=== PATIENT | female | born 1985 | race Caucasian/White ===

== ENCOUNTER 2016-04-13 12:50 | Inpatient (IN) | payer MEDICAID ==
[2016-04-13] MEDS ORDERED: DEXTROSE 5%-LACTATED RINGERS 1,000 ML IV PRN ×2 (15:03→17:03)
[2016-04-13] MEDS ORDERED: OXYTOCIN/DEXTROSE 5%-WATER 30 UNITS/500 ML BAG IV ONE (17:03)
[2016-04-13] MEDS ORDERED: LIDOCAINE HCL 50 ML VIAL PERI PRN (17:03)
[2016-04-13] MEDS ORDERED: RINGERS SOLUTION,LACTATED 1,000 ML IV ONE (17:03)
[2016-04-13 17:20] LABS: Hematocrit 32.9 % (37.0-47.0); Hemoglobin 10.4 gm/dL (12.5-16.0); Mean Cell Volume 91.6 fl (78-100); Mean Corpuscular Hgb Conc 31.6 g/dl (32-36); Mean Platelet Volume 10.7 fl (6.0-9.5); Neutrophil # 7.6 K/mm3 (1.3-6.0); Neutrophil % 77.6 % (42-75.0); Platelet Count 153 K/mm3 (150-450); Red Blood Count 3.59 M/mm3 (4.2-5.4); Red Cell Distribution Width 21.1 % (11.5-14.0); White Blood Count 9.8 K/mm3 (4.0-10.5)
[2016-04-13 17:35] LABS: Albumin * 2.4 gm/dl (3.4-5.0); Anion Gap 14.3 mmol/L (6.8-13.8); BUN/Creatinine Ratio 8.9 (9.0-21.6); Bilirubin, Total 0.3 mg/dL (0.0-1.1); Ca. Corrected For Albumin 9.3 mg/dL (8.4-10.2); Calcium * 8.3 mg/dL (7.9-10.9); Carbon Dioxide 21.2 mmol/L (24-32.6); Potassium 3.5 mmol/L (3.4-4.6); Total Protein 6.5 gm/dL (6.2-8.2)
[2016-04-13 17:44] LABS: Random Urine Total Protein 19.1 mg/dL (0-12)
[2016-04-13] MEDS ORDERED: BUPIVACAINE HCL/0.9 % NACL/PF 250 ML EP PRN (18:46)
--- NOTE | 2016-04-13 18:49 | OR ---
Anesthesia Pre Procedure Eval Date of Service: 04/13/16 Pre Procedure Evaluation: Last Vital Signs Temp 36.4 C L 05/09/14 07:24 Pulse Resp BP 135/74 05/09/14 07:24 Pulse Ox Anesthesia Pre Procedure Evaluation Heart Rate:112 Blood Pressure:151/84 Termperature:37.1 Respiratory Rate:18 SaO2:97 DATE: 04/13/2016 TIME: 1845 INDICATIONS: Active labor, labor pain PAST MEDICAL HISTORY:. multipara patient in active labor requesting labor analgesia EXAM: Heart regular; lungs clear ASSESSMENT OF MEDICAL STATUS: Appropriate candidate for labor analgesia PLANNED PROCEDURE: Combination spinal epidural for labor analgesia Home Medications: HOME MEDICATIONS Vit#96/Ferrous Fum/FA [ S] 1 tab PO DAILY 05/06/14 [Last Taken 04/13/16] Ferrous Sulfate 325 mg PO DAILY #60 tablet 05/08/14 [Last Taken 04/13/16] Aspirin [Aspirin EC] 81 mg PO DAILY 04/13/16 [Last Taken 04/13/16]
[2016-04-13] MEDS ORDERED: fentaNYL CITRATE/PF 50 MCG/ML AMPUL IT SCH (19:00)
--- NOTE | 2016-04-13 19:22 | OR ---
Anesthesia Procedure Note - Anesthesia Procedure Note Date of Service: 04/13/16 Narrative: Vital Signs - Last Taken Temp 36.4 C L 05/09/14 07:24 Pulse Resp BP 135/74 05/09/14 07:24 Pulse Ox 04/13/16 19:19 ANESTHESIA PROCEDURE NOTE Date of Procedure: 04/13/2016 Time of procedure: 10/01/1943. Performed by: PEDRO Lew CRNA, MSN Physical Therapy Instructor: Gilma Gaines Preprocedure diagnosis: Active labor, labor pain. Post procedure diagnosis: Same. Procedure: Labor Epidural Placement L3 4. Indications: Labor pain. Findings: See below. Details of the procedure: The patient was placed on the side of the bed in sitting position. The patient was prepped with DuraPrep and draped in a sterile fashion. Lidocaine 1% was infiltrated to the skin and subcutaneous tissues at the level of the L3 4 interspace. The epidural space was identified using a 18-gauge Tuohy needle with [id number] technique. Fentanyl 20 g was given intrathecally the intrathecal needle was then removed and the epidural catheter was threaded approximately 4 cm, the epidural needle was then removed, and after careful aspiration 3 mL of 1.5% lidocaine with 1-200,000 epinephrine was injected without change in maternal heart rate or sensorium. The catheter was then taped in place. EBL: Minimal. Fluids: N/A. Specimen: N/A. Post procedure condition: The patient tolerated the procedure well with good relief. No complications were noted. Thank you for this consultation. Nahum Humphries CRNA, CAR MECHANIC, MSN
--- NOTE | 2016-04-14 00:59 | PN ---
Progess Note - Interim Narrative: 04/14/16 00:55 Patient comfortable with epidural Blood pressures 130s-160/70-90's. Pitocin at 6 mu/min. FHT:150 baseline, reassuring Contractions q 2 min Cervix: Complete/+1 Impression: Intrauterine at 38-4/7 weeks in labor, gestational hypertension stable Plan: Anticipate normal spontaneous vaginal delivery within the next 1-2 hours
[2016-04-14] MEDS ORDERED: HYDROCORTISONE 30 APPL TUBE TP PRN (01:52)
[2016-04-14] MEDS ORDERED: BISACODYL 10 MG SUPP.RECT RC PRN (01:52)
[2016-04-14] MEDS ORDERED: RINGERS SOLUTION,LACTATED 1,000 ML IV PRN (01:52)
[2016-04-14] MEDS ORDERED: OXYTOCIN/DEXTROSE 5%-WATER 30 UNITS/500 ML BAG IV ONE (01:52)
[2016-04-14] MEDS ORDERED: oxyCODONE HCL/ACETAMINOPHEN 1 TAB TABLET PO PRN (01:52)
[2016-04-14] MEDS ORDERED: BENZOCAINE/MENTHOL 81 SPRAY CAN TP PRN (01:52)
[2016-04-14] MEDS ORDERED: SENNOSIDES 8.6 MG TABLET PO PRN (01:52)
[2016-04-14] MEDS ORDERED: GLYCERIN/WITCH HAZEL LEAF 40 APPL BOX TP PRN (01:52)
--- NOTE | 2016-04-14 01:52 | OR ---
Operative Report - Dictated Report Narrative: Spontaneous vaginal delivery of viable female at 0127 on 04/14/2016 with Apgars 7 and 8, weighing 4631 g in GUERO position. Terminal meconium noted. Cord clamping delayed approximately 1 minute. Placenta delivered complete, intact, with three vessel cord Estimated blood loss: less than 50 ml Lacerations: None History for MU Definition: * The number of deliveries resulting in a live the patient experienced prior to current hospitalization * The previous delivery of live twins or any live multiple gestation is considered one live event. *If primagravida or nulliparous is documented select zero for the number of previous live births. Live Events: 2
[2016-04-14] MEDS: oxyCODONE HCL/ACETAMINOPHEN 1 TAB TABLET PO PRN ×4 (02:55→18:53)
[2016-04-14] MEDS: IBUPROFEN 800 MG TABLET PO PRN ×3 (02:55→21:39)
[2016-04-14] MEDS: PRENATAL VIT#96/FERROUS FUM/FA 1 TAB TABLET PO SCH (11:23)
[2016-04-14] MEDS: FERROUS SULFATE 325 MG TABLET PO SCH (11:23)
[2016-04-14] MEDS: DOCUSATE SODIUM 100 MG CAPSULE PO SCH ×2 (11:23→21:40)
[2016-04-15] MEDS: IBUPROFEN 800 MG TABLET PO PRN ×3 (07:23→20:04)
[2016-04-15] MEDS: oxyCODONE HCL/ACETAMINOPHEN 1 TAB TABLET PO PRN ×3 (07:23→20:04)
[2016-04-15] MEDS: FERROUS SULFATE 325 MG TABLET PO SCH ×2 (07:23→08:09)
[2016-04-15] MEDS: PRENATAL VIT#96/FERROUS FUM/FA 1 TAB TABLET PO SCH ×2 (07:24→08:09)
[2016-04-15] MEDS: DOCUSATE SODIUM 100 MG CAPSULE PO SCH ×3 (07:24→20:05)
--- NOTE | 2016-04-15 08:07 | PN ---
Progess Note - Interim Narrative: 04/15/16 08:06 progress note Subjective: The patient is doing well. She is ambulating, voiding, tolerating by mouth. She has minimal pain and moderate lochia. Objective: General: No acute distress Abdomen: Soft, nontender, fundus is firm just below the umbilicus Extremities: minimal edema, nontender to palpation Assessment and plan: day 1 Feeding: Breast Pain: Controlled with by mouth medication Routine care.
[2016-04-16] MEDS: oxyCODONE HCL/ACETAMINOPHEN 1 TAB TABLET PO PRN ×3 (02:10→17:21)
[2016-04-16] MEDS: IBUPROFEN 800 MG TABLET PO PRN ×3 (02:10→17:21)
--- NOTE | 2016-04-16 08:39 | PN ---
Subjective - Date and Time Seen Date: 04/16/16 Time: 08:37 Objective - Vitals Vitals: Last Vital Signs Temp 36.4 C L 04/16/16 07:10 Pulse 89 04/16/16 07:10 Resp 16 04/16/16 07:10 BP 138/87 04/16/16 07:10 Pulse Ox 100 04/16/16 07:10 Patient denies complaints. Breast-feeding and bonding well. Desires permanent sterilization Lochia wnl Abdomen - soft, nontender Uterus - firm, at umbilicus - 2 No calf tenderness Impression: day #2 - s/p spontaneous vaginal delivery. Gestational hypertension-controlled/resolving Plan: Routine discharge instructions. Follow-up in 1 week for blood pressure check. Risks/benefits/alternatives to bilateral tubal ligation discussed with patient. Informed consent obtained and papers signed. We'll schedule for tubal ligation in approximately 4-6 weeks. Cauti Physician Documentation - Urinary Catheter Management Uretheral (Winter) Date of Insertion: 04/13/16 Time of Insertion: 19:50 Date of Removal: 04/14/16 Time of Removal: 01:18
[2016-04-16] MEDS: PRENATAL VIT#96/FERROUS FUM/FA 1 TAB TABLET PO SCH (08:44)
[2016-04-16] MEDS: DOCUSATE SODIUM 100 MG CAPSULE PO SCH (08:44)
[2016-04-16] MEDS: FERROUS SULFATE 325 MG TABLET PO SCH (08:44)
[2016-04-16 12:10] VITALS: BP 136/79
== END 2016-04-16 17:40 | disposition home or self-care (01) | DRG 775 ==
LOC: OBCLINIC 12:50 → OB 16:54
PROVIDERS: ADMIT Obstetrics & Gynecology; ATTEND Obstetrics & Gynecology
PROC: 10E0XZZ Delivery of Products of Conception, External Approach (ICD-10-PCS; principal; 2016-04-14)
PROC: 4A1H7CZ Monitoring of Products of Conception, Cardiac Rate, Via Natural or Artificial Opening (ICD-10-PCS; 2016-04-14)
PROC: 3E0S3CZ (ICD-10-PCS; 2016-04-14)
DX: O13.4 Gestational [pregnancy-induced] hypertension without significant proteinuria, complicating childbirth (principal); O99.02 Anemia complicating childbirth; O77.0 Labor and delivery complicated by meconium in amniotic fluid; D64.9 Anemia, unspecified; Z3A.38 38 weeks gestation of pregnancy; Z37.0 Single live birth

== ENCOUNTER 2016-05-17 06:54 | Day surgery (SDC) | payer MEDICAID ==
[~2016-05-17 06:54] MED LIST: RINGER'S SOLUTION,LACTATED 1,000 ML IV PRN
[2016-05-17] MEDS ORDERED: LIDOCAINE HCL/EPINEPHRINE 50 ML VIAL IJ ONE ×2 (08:10)
--- NOTE | 2016-05-17 09:04 | OR ---
Operative Report - Dictated Report Narrative: DATE OF PROCEDURE: 05/17/2016 INDICATION: 30 year old female desires permanent sterilization by removal of both fallopian tubes PREOPERATIVE DIAGNOSIS: Multiparity, desires permanent sterilization POSTOPERATIVE DIAGNOSIS: Multiparity, desires permanent sterilization OPERATION: Laparoscopic bilateral salpingectomy SURGEON: Arthur Leone D.O. BLOOD BANK ASSISTANT: None ANESTHESIA: General ESTIMATED BLOOD LOSS: Minimal FLUID REPLACEMENT: 700 mL URINE OUTPUT: Not measured FINDINGS: Normal uterus, tubes, and ovaries. Normal appearing appendix and liver edge SPECIMEN(S): Fallopian tubes DRAINS: none TECHNIQUE: The patient was taken to the operating room and placed in dorsal lithotomy position after adequate general anesthesia was obtained. The anterior lip of the cervix was grasped with a long Allis clamp and a uterine manipulator was inserted into the cervical canal and attached to the Allis clamps as a means to manipulate the uterus. Bladder was drained prior to patient entering the OR. Gloves were changed and attention was turned to the abdomen where the umbilicus and suprapubic region were injected with a 1% lidocaine epinephrine was solution. A scalpel was used to score the skin and a 5 mm non-bladed trocar was inserted via direct technique under direct visualization. Pneumoperitoneum was created with CO2 gas. A 12 mm non-bladed trocar was inserted suprapubically and another 5 mm non-bladed trocar was inserted in the left lower quadrant in a similar fashion. Through these 3 ports the surgery was carried out with findings as noted above. The right fallopian tube was identified and followed out to the fimbriated end. The fallopian tube was coagulated with the Kleppinger's approximately 2 cm from the cornual region and along the mesosalpinx. The tube was then excised with laparoscopic scissors and removed through the 12 mm port. The exact same was done on the patient's left side. The CO2 gas was removed from the abdominal cavity. Trochars were removed under direct visualization. The fascia of the 12 mm port was closed with a single 0 Vicryl suture. The skin of both incisions was closed with 4-0 Monocryl. Exophin adhesive dressing was applied to all incisions. Instruments were removed from the cervix and vagina. Sponge , lap, instrument, and needle count were correct x 2. DISPOSITION: The patient was awakened and transferred to post anesthesia care unit in good condition.
[2016-05-17] MEDS ORDERED: oxyCODONE HCL/ACETAMINOPHEN 1 TAB TABLET PO PRN (09:53)
[2016-05-17] MEDS ORDERED: MORPHINE SULFATE 2 MG/ML DISP.SYRIN IV PRN (09:53)
[2016-05-17] MEDS ORDERED: IBUPROFEN 800 MG TABLET PO PRN (09:54)
[2016-05-17 11:11] VITALS: BP 133/83
== END 2016-05-17 06:55 | disposition home or self-care (01) ==
LOC: AMB 06:54
PROVIDERS: ATTEND Obstetrics & Gynecology
PROC: 0UT74ZZ Resection of Bilateral Fallopian Tubes, Percutaneous Endoscopic Approach (ICD-10-PCS; principal; 2016-05-17 08:00)
DX: Z30.2 Encounter for sterilization (principal); D64.9 Anemia, unspecified; E66.9 Obesity, unspecified; Z68.35 Body mass index [BMI] 35.0-35.9, adult